=== PATIENT | female | born 1995 | race Caucasian/White ===

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

== ENCOUNTER 2017-06-02 19:46 | Emergency (ER) | payer MEDICAID ==
[~2017-06-02 19:46] MED LIST: PREN29TA PO
--- NOTE | 2017-06-02 20:18 | PD ---
HPI Chief Complaint Contractions Date Seen: Jun 02, 2017 Time Seen: 20:16 Travel History International Travel<30 Days: No Contact w/Intl Traveler<30Days: No Known Affected Area: No History of Present Illness HPI 21-year-old who is at 37 weeks 4 days comes in complaining of contractions that began this morning and have been going on all day long. She states that they're quite painful this morning and then she went to work for 3 hours and became concerned as this was her first . Contractions have decreased in frequency and are now occurring every 10-15 minutes. Denies vaginal bleeding or rupture membranes. Patient is having normal movement. No complications, she is GBS positive Para: 0 : 2 History Past Medical History Medical History: Denies Significant Hx Past Surgical History Surgical History: No Previous Surgery Family History Family History: Negative Social History Alcohol Use: No Tobacco Use: No Substance Abuse: Yes (marijuana) Allergies-Medications (Allergen,Severity, Reaction): Coded Allergies: No Known Allergies (Unverified , 12/24/16) Home Meds Reported Medications Vit-Iron Carbonyl ( Plus Iron 29-1 mg)1 Tab Tab1 Tab PO DAILY #30 TAB Ref 0 12/24/16 Review of Systems Except as stated in HPI: all other systems reviewed are Neg Physical Exam Narrative GENERAL: Well-nourished, well-developed patient. SKIN: Warm and dry. HEAD: Normocephalic and atraumatic. EYES: No scleral icterus. No injection or drainage. ENT: No nasal drainage noted. Mucous membranes pink. Airway patent. NECK: Supple, trachea midline. No JVD. CARDIOVASCULAR: Regular rate and rhythm without murmurs, gallops, or rubs. RESPIRATORY: Breath sounds equal bilaterally. No accessory muscle use. BREASTS: Bilateral exam showed no masses , no retractions, no nipple discharge. ABDOMEN/GI: Abdomen soft, non-tender, bowel sounds present, no rebound, no guarding Gravid to [37-] weeks size Fundal Height: [-] GENITOURINARY: External Genitalia: intact and normal in appearance BUS glands: [Normal-] Cervix: [-Posterior] Dilatation: [1-2-] Effacement: [50-] Station: [--3] Presentation: [Vertex] ballotable Membranes: [intact] Uterine Contractions: [-Irregular every 10-15] FHT's: Category: [-1] Baseline: [-140] Reactive: [-Moderate] Variability: [-Moderate] Decels: [Absent-] EXTREMITIES: No cyanosis or edema. BACK: Nontender without obvious deformity. No CVA tenderness. NEUROLOGICAL: Awake and alert. Motor and sensory grossly within normal limits. Five out of 5 muscle strength in all muscle groups. Normal speech. Data Data Vital Signs Reviewed: Yes (112/75) MDM Plan 21-year-old at 37-38 weeks gestation False labor-signs and symptoms of labor or rupture membranes were reviewed with patient and she is to come back in if any these were to occur Follow-up with her OB provider next week as already scheduled Diagnosis Diagnosis: Primary Impression: False labor Additional Impression: False labor after 37 weeks of gestation without delivery Disposition: 01 DISCHARGE HOME Zehra Adkins MD Jun 02, 2017 20:18
== END 2017-06-02 20:40 | disposition home or self-care (01) ==
LOC: HOBED 19:46
DX: O47.1 False labor at or after 37 completed weeks of gestation (principal); Z3A.37 37 weeks gestation of pregnancy
CPT/HCPCS: 59025

== ENCOUNTER 2017-06-12 14:29 | Emergency (ER) | payer MEDICAID ==
--- NOTE | 2017-06-12 15:04 | PD ---
HPI Chief Complaint Decreased movement Date Seen: Jun 12, 2017 Travel History International Travel<30 Days: No Contact w/Intl Traveler<30Days: No Known Affected Area: No History of Present Illness HPI Patient is 21-year-old white female at [address] Martinez presents planning of decreased movement today. Since being here on OB ED she is feeling the baby move. Her NST is reactive now and she is not tamara significantly. Para: 0 : 2 History Obstetric History Obstetric History 1 early AB Social History Alcohol Use: No Tobacco Use: No Substance Abuse: No Allergies-Medications (Allergen,Severity, Reaction): Coded Allergies: No Known Allergies (Unverified , 12/24/16) Home Meds Reported Medications Vit-Iron Carbonyl ( Plus Iron 29-1 mg)1 Tab Tab1 Tab PO DAILY #30 TAB Ref 0 12/24/16 Review of Systems General / Constitutional: No: Fever, Weight Gain, Chills, Other Eyes: No: Diploplia, Blurred Vision, Visual changes, Pain, Photophobia HENT: No: Headaches, Vertigo, Lightheadedness Cardiovascular: No: Irregular Rhythm, Chest Pain or Discomfort, Palpitations, Tachycardia, Syncope, Varicosities, Edema, Cyanosis Respiratory: No: Cough, Short of Breath, Other Gastrointestinal: No: Nausea, Vomiting, Diarrhea Genitourinary: No: Decreased Urinary Output, Oliguria Musculoskeletal: No: Limited ROM, Weakness, Cramping, Edema, Pain Skin: No Rash, No Itching, No Dryness, No Lumps, No Change in Pigmentation, No Change in Nails, No Alopecia, No Lesions Neurologic: No: Weakness, Dizziness, Syncope, Focal Abnormalities, Coordination Problem, Headache, Slurred Speech, Seizures Psychiatric: No: Depression, Suicidal Ideations, Homicidal Ideation Endocrine: No: Heat Intolerance, Cold Intolerance, Polydipsia, Polyuria, Other Physical Exam Narrative GENERAL: Well-nourished, well-developed patient. SKIN: Warm and dry. HEAD: Normocephalic and atraumatic. EYES: No scleral icterus. No injection or drainage. ENT: No nasal drainage noted. Mucous membranes pink. Airway patent. NECK: Supple, trachea midline. No JVD. CARDIOVASCULAR: Regular rate and rhythm without murmurs, gallops, or rubs. RESPIRATORY: Breath sounds equal bilaterally. No accessory muscle use. BREASTS: Bilateral exam showed no masses , no retractions, no nipple discharge. ABDOMEN/GI: Abdomen soft, non-tender, bowel sounds present, no rebound, no guarding Gravid to [-39] weeks size Fundal Height: [-39] GENITOURINARY: Membranes: [intact ] Uterine Contractions: [occasional-] FHT's: Category: [1-] Baseline: [133-] Reactive: [-yes] Variability: [-mod] Decels: [none-] EXTREMITIES: No cyanosis or edema. BACK: Nontender without obvious deformity. No CVA tenderness. NEUROLOGICAL: Awake and alert. Motor and sensory grossly within normal limits. Five out of 5 muscle strength in all muscle groups. Normal speech. MDM Interpretation(s) Patient 21-year-old white female at 39 weeks decreased movement. Says today see on OB ED baby is moving and NST is reactive, baby patient says the baby is moving now Plan Discharge home patient to do kick counts Diagnosis Diagnosis: Primary Impression: Decreased movement affecting management of in third trimester Disposition: 01 DISCHARGE HOME Condition: Stable Neftaly Agudelo II, MD Jun 12, 2017 15:04
== END 2017-06-12 15:12 | disposition home or self-care (01) ==
LOC: HOBED 14:29
DX: O36.8130 Decreased fetal movements, third trimester, not applicable or unspecified (principal); Z3A.39 39 weeks gestation of pregnancy
CPT/HCPCS: 99282

== ENCOUNTER 2017-06-19 10:46 | Inpatient (IN) | payer MEDICAID ==
[2017-06-19] VITALS (31 sets, daily range): BP systolic 91–130; BP diastolic 56–89; PULSE 92–137; RESP 18–20; TEMP 98.3–99
[2017-06-19] MEDS ORDERED: LACTATED RINGER'S 1000 ML INJ 1,000 ML IV PRN (12:40)
[2017-06-19] MEDS ORDERED: CITRIC ACID-SODIUM CITRATE LIQ 30 ML UDC PO SCH (12:45)
[2017-06-19] MEDS ORDERED: OXYTOCIN 30 UNITS-500ML PREMIX 500 ML IV ONE (12:45)
[2017-06-19] MEDS ORDERED: SODIUM CHLORID 0.9% 500 ML INJ 500 ML IV PRN (12:45)
[2017-06-19] MEDS ORDERED: ONDANSETRON HCL 4 MG/2 ML VIAL IV PRN (12:45)
[2017-06-19] MEDS ORDERED: MINERAL OIL 10 ML VIAL TOPICAL PRN (12:45)
[2017-06-19] MEDS ORDERED: LIDOCAINE HCL 1% 50 ML VIAL I-DERMAL PRN (12:45)
[2017-06-19] MEDS ORDERED: LIDOCAINE HCL 1% 50 ML VIAL INFIL PRN (12:45)
[2017-06-19 12:51] LABS: AUTOMATED NEUTROPHIL # 8.7 TH/MM3 (1.8-7.7); BASOPHIL % 0.2 % (0.0-2.0); EOSINOPHIL # 0.1 TH/MM3 (0-0.4); EOSINOPHIL % 0.5 % (0.0-4.0); HEMATOCRIT 32.7 % (35.0-46.0); HEMO FLAGS DIFF FINAL; LYMPH % 14.3 % (9.0-44.0); LYMPHOCYTE # 1.6 TH/MM3 (1.0-4.8); MEAN CELL VOLUME 86.3 FL (80.0-100.0); MEAN CORPUSCULAR HEMOGLOBIN 29.4 PG (27.0-34.0); MONO % 4.5 % (0.0-8.0); NEUT % 80.5 % (16.0-70.0); PLATELET COUNT 191 TH/MM3 (150-450); RED BLOOD COUNT 3.79 MIL/MM3 (4.00-5.30); RED CELL DISTRIBUTION WIDTH 13.1 % (11.6-17.2); WHITE BLOOD COUNT 10.9 TH/MM3 (4.0-11.0)
[2017-06-19] MEDS: LACTATED RINGER'S 1000 ML INJ 1,000 ML IV SCH ×3 (12:57→21:09)
[2017-06-19] MEDS ORDERED: SODIUM CHLOR 0.9% 1000 ML INJ 1,000 ML IV PRN (13:00)
[2017-06-19] MEDS ORDERED: PENICILLIN G POTASSIUM INJ 5,000,000 UNITS in SODIUM CHLORIDE 0.9% INJ 100 ML IV ONE (13:00)
[2017-06-19 14:02] LABS: BLOOD, URINE NEG (NEG); COMMENT (UR) CULT NOT INDICATED; CULTURE IF INDICATED CULT NOT INDICATED; GLUCOSE,URINE NEG (NEG); HYALINE CAST, URINE 2 /lpf (RARE); KETONE, URINE NEG (NEG); NITRITE,URINE NEG (NEG); SQUAMOUS EPITHELIAL CELL URINE 1 /hpf (0-5); URINE COLOR YELLOW (YELLW/STRAW)
[2017-06-19] MEDS ORDERED: OXYTOCIN 30 UNITS-500ML PREMIX 500 ML IV SCH (16:45)
[2017-06-19] MEDS: PENICILLIN G POTASSIUM INJ 2,500,000 UNITS in SODIUM CHLORIDE 0.9% INJ 100 ML IV SCH ×2 (16:51→21:07)
[2017-06-19] MEDS ORDERED: ePHEDrine/NS 25 MG/5 ML SYR ONE (19:44)
[2017-06-19] MEDS ORDERED: fentaNYL 2MCG-BUPIV 0.125% INJ 100 ML ONE (19:44)
[2017-06-19] MEDS ORDERED: NO SYSTEM NARCOTICS PRN (20:45)
[2017-06-19] MEDS ORDERED: fentaNYL 2MCG-BUPIV 0.125% 100 ML EPIDURAL SCH (20:45)
[2017-06-19] MEDS ORDERED: DO NOT ADMINISTER ANTICOAGULANTS PRN (20:45)
[2017-06-19] MEDS ORDERED: ePHEDrine/NS 25 MG/5 ML SYR IV PRN (20:45)
[2017-06-19] MEDS ORDERED: LIDOCAINE HCL 1.5% PF SOLN 20 ML AMP ONE (23:21)
[2017-06-20] VITALS (7 sets, daily range): BP systolic 103–114; BP diastolic 63–81; PULSE 89–112; RESP 18; TEMP 97.9–99
--- NOTE | 2017-06-20 01:16 | PD.OB.DELI ---
Delivery Date: Jun 20, 2017 Anesthesia: Epidural Episiotomy: None Vaginal Delivery: Normal Presentation: Occiput anterior Nuchal Cord: None Delayed cord clamping (45 sec): Yes Infant: Female One Minute : 9 Five Minute : 9 Weight: pending Placenta: Spontaneous delivery Laceration: 1 deg (hemostatic, no repair) Estimated blood loss: 300ml Guerda Rodriguez MD Jun 20, 2017 01:16
--- NOTE | 2017-06-20 01:19 | HHI.DCPOC ---
Discharge Care Plan Diagnosis: (1) (spontaneous vaginal delivery) Your Health Problems Are: Vaginal delivery Report Symptoms to Your Doctor -Temperature above 100.5 degrees -Redness, of incision or excessive or foul smelling drainage -Unusual pain or calf pain -Increased vaginal bleeding -Painful or difficulty urinating -Feelings of extreme sadness or anxiety after 2 weeks Goals to Promote Your Health * To prevent worsening of your condition and complications * To maintain your health at the optimal level Directions to Meet Your Goals Take your medications as prescribed Follow your dietary instruction Follow activity as directed Ensure plenty of rest for recovery Drink fluids for hydration Keep your appointments as scheduled Take your immunizations and boosters as scheduled If your symptoms worsen call your PCP, if no PCP go to Urgent Care Center or Emergency Room Smoking is Dangerous to Your Health. Avoid second hand smoke Call the 24-hour crisis hotline for domestic abuse at Guerda Rodriguez MD Jun 20, 2017 01:19
[2017-06-20] MEDS ORDERED: ONDANSETRON ODT 4 MG TAB PO PRN (01:30)
[2017-06-20] MEDS ORDERED: SODIUM CHLORIDE 0.9% FLUSH 10 ML FLUSH IV FLUSH PRN (01:30)
[2017-06-20] MEDS ORDERED: WITCH HAZEL 50%/GLYCERIN 12.5% 40 PAD JAR TOPICAL PRN (01:30)
[2017-06-20] MEDS ORDERED: ZOLPIDEM TARTRATE 5 MG TAB PO PRN (01:30)
[2017-06-20] MEDS: IBUPROFEN 600 MG TAB PO PRN ×4 (01:30→21:16)
[2017-06-20] MEDS ORDERED: BENZOCAINE 20% TOPICAL SPRAY 60 ML CAN TOPICAL PRN (01:30)
[2017-06-20] MEDS ORDERED: ALUMINUM/MAGNESIUM/SIMETH 30 ML CUP PO PRN (01:30)
[2017-06-20] MEDS ORDERED: OXYTOCIN 30 UNITS-500ML PREMIX 500 ML IV SCH (01:30)
[2017-06-20] MEDS: DOCUSATE SODIUM 50 MG/SENNA 8.6 MG TAB PO PRN ×2 (03:50→21:15)
[2017-06-20] MEDS: ACETAMINOPHEN 325 MG TAB PO PRN ×3 (03:51→18:03)
--- NOTE | 2017-06-20 08:35 | HHI.OB ---
Subjective Post Day: 0 Remarks ambulating well happy nursing Objective Vitals/I&O Vital Signs Date Time Temp Pulse Resp B/P Pulse Ox O2 Delivery O2 Flow Rate FiO2 06/20/17 03:30 99.0 98 18 108/63 06/20/17 02:00 101 114/67 06/20/17 01:30 18 06/20/17 01:30 112 103/76 06/20/17 01:30 98.6 06/20/17 01:21 109 107/81 06/20/17 00:00 102 111/81 06/19/17 23:30 120 103/58 06/19/17 23:00 116 99/56 06/19/17 22:33 118 108/59 06/19/17 22:24 99.0 06/19/17 22:24 18 06/19/17 22:00 92 103/63 06/19/17 21:35 137 06/19/17 21:35 115/80 06/19/17 21:00 104 101/58 06/19/17 20:55 18 06/19/17 20:30 109 107/73 06/19/17 20:10 117 108/62 06/19/17 20:07 102 105/65 06/19/17 20:06 119 91/74 06/19/17 20:05 109 06/19/17 20:00 105 06/19/17 20:00 105 124/87 06/19/17 19:56 114 128/78 06/19/17 19:55 108 06/19/17 19:39 20 06/19/17 19:36 119 130/82 06/19/17 18:02 123 122/89 06/19/17 18:01 98.9 18 06/19/17 18:00 107 06/19/17 16:45 118 06/19/17 16:40 117 06/19/17 16:35 116 06/19/17 16:30 115 06/19/17 16:25 117 06/19/17 16:20 115 06/19/17 16:15 110 06/19/17 16:11 114 18 118/87 06/19/17 14:59 108 123/83 06/19/17 14:58 98.3 18 Objective Remarks GENERAL: Well-nourished, well-developed patient. CARDIOVASCULAR: Regular rate and rhythm without murmurs, gallops, or rubs. RESPIRATORY: Breath sounds equal bilaterally. No accessory muscle use. ABDOMEN/GI: Abdomen soft, non-tender. Fundus: Firm, non-tender at umbilicus. GENITOURINARY: Light to moderate bleeding. EXTREMITIES: No cyanosis or edema, non-tender, without signs of DVT. Medications and IVs Current Medications Medications (Trade) Dose Ordered Sig/Junior Route Start Time Stop Time Status Last Admin (NS Flush) 2 ml BID IV FLUSH 06/20/17 09:00 (NS Flush) 2 ml UNSCH PRN IV FLUSH 06/20/17 01:30 (Tylenol) 650 mg Q4H PRN PO 06/20/17 01:30 06/20/17 07:45 (Motrin) 600 mg Q6H PRN PO 06/20/17 01:30 06/20/17 07:42 (Americaine 20% Top Spr) 1 spray Q4H PRN TOPICAL 06/20/17 01:30 06/20/17 03:50 (Tucks Pads) 1 applic QID PRN TOPICAL 06/20/17 01:30 06/20/17 03:50 (Silvia-Colace) 2 tab Q12H PRN PO 06/20/17 01:30 06/20/17 03:50 (Ambien) 5 mg HS PRN PO 06/20/17 01:30 (M-M-R Ii Inj) 0.5 ml ONCE ONCE SQ 06/20/17 16:00 06/20/17 16:01 (Boostrix Inj) 0.5 ml ONCE ONCE IM 06/20/17 16:00 06/20/17 16:01 (Mag-Al Plus Susp Liq) 15 ml Q8H PRN PO 06/20/17 01:30 (Zofran Odt) 4 mg Q6H PRN PO 06/20/17 01:30 Assessment/Plan Assessment and Plan doing well anticipate discharge in Jennifer Chavez MD Jun 20, 2017 08:35
[2017-06-20] MEDS ORDERED: SODIUM CHLORIDE 0.9% FLUSH 10 ML FLUSH IV FLUSH SCH (09:00)
[2017-06-20] MEDS ORDERED: DIPHTH/TETANUS/ACEL PERTUSSIS (BOOSTER) 0.5 ML VIAL/PFS IM ONE (16:00)
[2017-06-20] MEDS ORDERED: MEASLES, MUMPS, RUBELLA VACCINE 0.5 ML VIAL SQ ONE (16:00)
[2017-06-21] MEDS: IBUPROFEN 600 MG TAB PO PRN (06:18)
--- NOTE | 2017-06-21 07:41 | HHI.OB ---
Subjective Post Day: 2 Remarks PPD#2, Doing well, desires discharge . daughter doing well. Objective Vitals/I&O Vital Signs Date Time Temp Pulse Resp B/P Pulse Ox O2 Delivery O2 Flow Rate FiO2 06/20/17 21:00 98.4 06/20/17 21:00 91 18 103/66 06/20/17 08:00 97.9 89 18 110/72 Objective Remarks GENERAL: Well-nourished, well-developed patient. CARDIOVASCULAR: Regular rate and rhythm without murmurs, gallops, or rubs. RESPIRATORY: Breath sounds equal bilaterally. No accessory muscle use. ABDOMEN/GI: Abdomen soft, non-tender. Fundus: Firm, non-tender at umbilicus. GENITOURINARY: Light to moderate bleeding. EXTREMITIES: No cyanosis or edema, non-tender, without signs of DVT. Medications and IVs Current Medications Medications (Trade) Dose Ordered Sig/Junior Route Start Time Stop Time Status Last Admin (NS Flush) 2 ml BID IV FLUSH 06/20/17 09:00 (NS Flush) 2 ml UNSCH PRN IV FLUSH 06/20/17 01:30 (Tylenol) 650 mg Q4H PRN PO 06/20/17 01:30 06/20/17 18:03 (Motrin) 600 mg Q6H PRN PO 06/20/17 01:30 06/21/17 06:18 (Americaine 20% Top Spr) 1 spray Q4H PRN TOPICAL 06/20/17 01:30 06/20/17 03:50 (Tucks Pads) 1 applic QID PRN TOPICAL 06/20/17 01:30 06/20/17 03:50 (Silvia-Colace) 2 tab Q12H PRN PO 06/20/17 01:30 06/20/17 21:15 (Ambien) 5 mg HS PRN PO 06/20/17 01:30 (Mag-Al Plus Susp Liq) 15 ml Q8H PRN PO 06/20/17 01:30 (Zofran Odt) 4 mg Q6H PRN PO 06/20/17 01:30 Assessment/Plan Assessment and Plan PPD#2; doing well Routine discharge Discharge Planning Routine, RTO in 6 weeks Attending Attestation seen by Chacho López MD Jun 21, 2017 07:41
[2017-06-21 09:00] VITALS: BP 134/85; PULSE 91; RESP 18; TEMP 98.3
[2017-06-21] MEDS: ACETAMINOPHEN 325 MG TAB PO PRN (11:16)
== END 2017-06-21 12:13 | disposition home or self-care (01) | DRG 775 ==
LOC: H2EB 10:46 → H1EA 06-20 03:06
PROVIDERS: ADMIT Obstetrics & Gynecology; ATTEND Obstetrics & Gynecology
PROC: 3E0S3CZ (ICD-10-PCS; 2017-06-19)
PROC: 00HU33Z Insertion of Infusion Device into Spinal Canal, Percutaneous Approach (ICD-10-PCS; 2017-06-19)
PROC: 10E0XZZ Delivery of Products of Conception, External Approach (ICD-10-PCS; principal; 2017-06-20)
DX: O70.0 First degree perineal laceration during delivery (principal); F17.210 Nicotine dependence, cigarettes, uncomplicated; O99.331 Smoking (tobacco) complicating pregnancy, first trimester; Z37.0 Single live birth; Z3A.40 40 weeks gestation of pregnancy
CPT/HCPCS: 81001; 85025; 85461; 86850; 86900; 86901; 90384; 90715; J2405; J2540; J2590; J2790; J3010; J7120